=== PATIENT | female | born 1985 | race Hispanic/Latino ===

== ENCOUNTER 2017-06-03 13:45 | Inpatient (IN) | payer BC, MEDICAID, OTHER, SELFPAY ==
[2017-06-03] MEDS ORDERED: Ketorolac Tromethamine 30 MG/ML VIAL ONE (14:19)
[2017-06-03] MEDS ORDERED: Succinylcholine Chloride 20 MG/ML 10 ml SYRINGE FS ONE (14:19)
[2017-06-03] MEDS ORDERED: Lidocaine 1% PF 5 ML VIAL ONE (14:19)
[2017-06-03] MEDS ORDERED: PROPOFOL 200 MG/20 ML VIAL ONE (14:19)
[2017-06-03] MEDS ORDERED: Glycopyrrolate 0.2 MG/ML 5 ML SYRINGE ONE (14:19)
[2017-06-03] MEDS ORDERED: Ondansetron HCl/PF 4 MG/2 ML Vial ONE (14:19)
[2017-06-03 14:23] LABS: #Eosinphils 0.1 thou/uL (0.0-0.7); #Lymphocytes 1.4 thou/uL (1.20-3.40); #Monocytes 0.4 thou/uL (0.11-0.59); #Neutrophils 6.3 thou/uL (1.40-6.50); %Basophils 0.1 % (0.0-1.0); %Eosinophils 1.3 % (0.0-10.0); %Lymphocytes 16.5 % (21.0-51.0); %Monocytes 5.1 % (0.0-10.0); Hemoglobin 13.5 g/dL (12.0-16.0); Mean Corpuscular HGB CONC 34.2 g/dL (32.0-36.0); Mean Corpuscular Hemoglobin 31.3 pg (27.0-31.0); Mean Corpuscular Volume 91.5 fl (81.0-99.0); Mean Platelet Volume 6.3 fL (7.4-10.4); Platelet Count 272 thou/uL (130-400); RBC Distribution Width 12.3 % (11.5-14.5); Red Blood Cell (RBC) Count 4.31 mill/uL (4.20-5.40); White Blood Cell (WBC) Count 8.2 thou/uL (4.8-10.8)
[2017-06-03 15:31] LABS: Bilirubin Negative (Negative); Blood, Urine Large (Negative); Clarity CLEAR (Clear); Glucose, Urine (Dipstick) Negative (Negative); Leukocyte Negative (Negative); Nitrite Negative (Negative); Protein, Urine (Dipstick) 100 mg/dL (Neg-Trace); Urobilinogen 0.2 mg/dL (0.2-1.0)
[2017-06-03 15:32] LABS: Bacteria/HPF None Seen HPF (None Seen); Hyaline Casts/LPF 0-3 HYALINE CAST LPF (0-3 Hyaline); WBC/HPF 0-3 HPF (0-3)
--- NOTE | 2017-06-03 21:40 | ULT ---
PELVIC ULTRASOUND: 06/03/17 HISTORY: Positive beta HCG with a quantitative HCG of 440. Left adnexal pain. Real time images of the pelvis were obtained both transabdominally as well as with an endovaginal pro be. These show what appears to be some fluid within the endometrium. This does not appear to represen t a gestational sac. If it was a sac it would be very distorted. Both the right and left adnexa are w ell visualized. Small follicles are present. Adjacent to the left adnexa, is an echogenic area . Ther e is also a moderate amount of free fluid within the cul-de-sac, more than typically seen. IMPRESSION: Left adnexal mass with moderate amount of free fluid in the cul-de-sac. Given these findings and the presence of left sided pelvic pain, findings must be viewed with suspicion for left sided ectopic. Th ere is some fluid within the endometrium but not a definitive gestational sac. Findings discussed wit KATIE Wilburn. POS: [facility]
[2017-06-03] MEDS ORDERED: Fentanyl 100 MCG/2 ML VIAL ONE (21:52)
[2017-06-03] MEDS ORDERED: Bupivacaine PF 0.5% 30 ML VIAL ONE (22:13)
[2017-06-03] MEDS ORDERED: Lidocaine 1% w/Epinephrine 1:200K 30 ML VIAL ONE (22:13)
[2017-06-04] MEDS ORDERED: Ondansetron HCl/PF 4 MG/2 ML Vial IVP PRN ×2 (00:02→00:09)
[2017-06-04] MEDS ORDERED: Meperidine HCl/PF 25 MG/ML VIAL SLOW IVP PRN (00:02)
[2017-06-04] MEDS ORDERED: Ibuprofen 800 MG TAB PO PRN (00:09)
[2017-06-04] MEDS ORDERED: Lidocaine 1% (PF) 30 ML VIAL SC PRN (00:09)
[2017-06-04] MEDS ORDERED: LR / Pitocin 40 units/1000 ml 1,000 ML IV PRN (00:09)
[2017-06-04] MEDS ORDERED: Lactated Ringer's 1,000 ML IV SCH (00:15)
[2017-06-04] MEDS ORDERED: Ketorolac Tromethamine 30 MG/ML VIAL IVP SCH (00:45)
[2017-06-04] MEDS: Lactated Ringer's 1,000 ML IV SCH ×2 (05:43→09:48)
[2017-06-04] MEDS: Ketorolac Tromethamine 30 MG/ML VIAL IVP SCH ×2 (05:44→12:09)
--- NOTE | 2017-06-04 07:56 | OP ---
DATE OF ENCOUNTER: 06/03/2017 PREOPERATIVE DIAGNOSIS: Abdominal pain with suspected ectopic . POSTOPERATIVE DIAGNOSIS: Left tubal , ruptured. PROCEDURE: Diagnostic laparoscopy with left salpingectomy. SPECIMENS REMOVED: Left tube and products of conception. ESTIMATED BLOOD LOSS: 100 mL. URINE OUTPUT: 400 mL. FINDINGS: Left tubal with bleeding. INDICATIONS FOR PROCEDURE: Ms. Ruano is a 32-year-old female who presented to the emergency room this evening with 3-day history of abdominal pain and a new diagnosis of . Upon arrival, patient was noted to have an ultrasound with abdominal pain and free fluid in the belly and no intrauterine . Patient was counseled to the concerns of ectopic and recommended diagnostic laparoscopy, possible laparotomy. For treatment, patient expressed understanding after review of risks and benefits and we proceeded to the OR. DESCRIPTION OF PROCEDURE: Patient was placed under general anesthesia in dorsal lithotomy position in [facility]. She was prepared and draped in a normal sterile fashion. Attention was placed vaginally where a uterine manipulator was inserted into the Os of the cervix with the aid of operative speculum and a single-tooth tenaculum on the anterior lip of the cervix. Attention was then placed abdominally, where 3 incisions were made; one in the umbilicus about 5 mm, one suprapubically about 10 mm, and a left quadrant at about 5 mm. Marcaine was injected prior for hemostasis. The abdomen was insufflated to approximately 12 mmHg and a 5-mm port with trocar was then inserted through the umbilical incision. Proper placement was confirmed by laparoscope. Inspection of the abdominal cavities did show bleeding in the pelvis. A 10-mm trocar was then placed suprapubically under direct visualization and a 5-mm trocar placed to the left port. The abdomen was then irrigated and uterus was then elevated and right tube and ovary were inspected first and noted to be normal. Left tube and ovary were then inspected and a left tubal was then identified with bleeding and clots coming out the end. With the aid of the LigaSure and a grasper, the tube was elevated and the salpingectomy was then performed beginning at the distal end with care to stay close within the mesosalpinx just below the tube. Once this was completed, the tube was then removed with the aid of an EndoCatch bag. There was some bleeding identified at the surgical site, which was then made hemostatic with the LigaSure device. At this point, the abdomen was then irrigated and the remaining blood was then removed. Inspection of the surgical site revealed good hemostasis. Wwith the procedure now completed, the abdomen was deflated. The ports were removed. The suprapubic incision site was then closed with a fascial stitch of 0 Vicryl followed by 4-0 Monocryl for the skin. The other 2 sites were closed with 4-0 Monocryl. The single-tooth tenaculum and the uterine manipulator were also removed and inspection of the operative speculum, the cervix was noted to be hemostatic. Patient was then taken out of lithotomy position and extubated and taken to recovery room in stable condition. MARLO
--- NOTE | 2017-06-04 08:09 | DIS ---
DATE OF ADMISSION: 06/03/2017 DATE OF DISCHARGE: 06/04/2017 ADMITTING DIAGNOSIS: Ectopic . DISCHARGE DIAGNOSIS: Ectopic . PROCEDURE: Diagnostic laparoscopy with left salpingectomy. CONSULTATIONS: None. HOSPITAL COURSE: Patient is a 32-year-old female who presented to the emergency room with a newly di agnosed and left-sided abdominal pain. Findings suggested ruptured left ectopic and patient was taken to the operating room for evaluation. There, we confirmed a left tubal pregnan cy ruptured resulting in a left salpingectomy and evacuation of blood clots. Procedure was uncomplic ated. The patient was then taken to recovery room and subsequently to floor for immediate postoperat arti recovery due to hour of the surgery. This morning, the patient reported she has good pain contro l and is voiding on her own and is hungry. PHYSICAL EXAMINATION: VITAL SIGNS: This morning blood pressure is 111/62, heart rate of 65, temperature 98.5, respiratory rate of 18. GENERAL: She appears to be in no acute distress. She is alert and oriented, and cooperative and ple asant to interact with. ABDOMEN: Soft. Incisions are clean, dry, and intact. EXTREMITIES: Nontender. The patient is being discharged to home. She has instructions to follow up with [facility] [place] in 2 weeks for a postoperative visit. She is to seek medical attention sooner if she experi ences fever, increasing pain, bleeding, drainage or redness from the incision site. Patient is going to be discharged to home with ibuprofen to be taken as needed for pain and tramadol.
[2017-06-04 12:21] VITALS: BP 108/56; TEMP 98.2
[2017-06-04] MEDS ORDERED: FLU VACC QS2017-18 36 mo. & older 0.5 ML SYRINGE IM ONE (21:00)
== END 2017-06-04 13:45 | disposition home or self-care (01) | DRG 777 ==
LOC: ERS 13:45 → SDC/OP 23:10 → 3SW 06-04 00:50 → OBSVTOIN 06-04 00:50
PROVIDERS: ADMIT Obstetrics & Gynecology; ATTEND Obstetrics & Gynecology
PROC: 10T24ZZ Resection of Products of Conception, Ectopic, Percutaneous Endoscopic Approach (ICD-10-PCS; principal; 2017-06-04)
PROC: 0UT64ZZ Resection of Left Fallopian Tube, Percutaneous Endoscopic Approach (ICD-10-PCS; 2017-06-04)
DX: O00.102 Left tubal pregnancy without intrauterine pregnancy (principal)
CPT/HCPCS: 36415; 76856; 81003; 81015; 84702; 85025; 86850; 86900; 86901; 88305; 88307; J1885; J2001; J2405; J2704; J3010; S0020

== ENCOUNTER 2019-02-12 06:34 | Outpatient (CLI) | payer MEDICAID ==
--- NOTE | 2019-02-12 09:29 | ULT ---
TRANSABDOMINAL AND TRANSVAGINAL PELVIC ULTRASOUND WITH DOPPLER: Date: 02/12/19 PROVIDED CLINICAL HISTORY: Left-sided pelvic pain. FINDINGS: Uterus measures about 8.9 x 4.2 x 3.4 cm and demonstrates an unremarkable sonographic appearance. End ometrial thickness is about 6.0 mm. Right ovary measures about 3.0 cm and appears sonographically normal. Left ovary measures about 3.8 c m and demonstrates a 3.1 cm simple appearing presumably physiologic cyst. Color Doppler and spectral analysis of the ovarian waveforms demonstrates normal flow bilaterally. There is no evidence for free pelvic fluid. IMPRESSION: No evidence for an acute process. POS: OFF
== END 2019-02-12 06:35 | disposition home or self-care (01) ==
LOC: BICULT 06:34
PROVIDERS: ATTEND Advanced Practice Midwife
DX: R10.2 Pelvic and perineal pain (principal)
CPT/HCPCS: 76856

== ENCOUNTER 2019-08-14 15:32 | Outpatient (CLI) | payer OTHER ==
--- NOTE | 2019-08-14 16:04 | ULT ---
Renal sonogram HISTORY: Proteinuria. FINDINGS: Right kidney is 11.9 cm length and left is 12.1 cm. Each has a normal sonographic appearanc e without evidence of mass, stone, or hydronephrosis. Urinary bladder is incompletely distended. IMPRESSION : No abnormalities are demonstrated.
== END 2019-08-14 15:33 | disposition home or self-care (01) ==
LOC: BICULT 15:32
PROVIDERS: ATTEND Obstetrics & Gynecology
DX: R80.9 Proteinuria, unspecified (principal)
CPT/HCPCS: 76770

== ENCOUNTER 2019-12-14 10:09 | Day surgery (SDC) | payer OTHER ==
[2019-12-14 10:37] VITALS: BMI 35.1
[2019-12-14] MEDS ORDERED: hydrALAZINE 20 MG/ML VIAL SLOW IVP PRN (10:57)
[2019-12-14 11:09] LABS: Bacteria/HPF None Seen HPF (None Seen); Bilirubin Negative (Negative); Blood, Urine Negative (Negative); Clarity Clear (Clear); Glucose, Urine (Dipstick) Normal (Negative); Ketone, Urine 20 mg/dL (Negative); Leukocyte Negative Leu/uL (Negative); Nitrite Negative (Negative); Protein, Urine (Dipstick) 200 mg/dL (Neg-Trace); Specific Gravity, Urine 1.012 (1.002-1.036); Squamous Epithelial None Seen HPF (0-3); Urobilinogen Normal mg/dL (Less than 2); WBC/HPF 0-3 HPF (0-3); pH, Urine 7.5 (5.0-9.0)
--- NOTE | 2019-12-14 12:23 | PRG ---
DATE OF SERVICE: 12/14/2019 PRIMARY OB: Dr. Chen. CHIEF COMPLAINT: Back pain and suprapubic tenderness. HISTORY OF PRESENT ILLNESS: The patient is a 34-year-old, G7, P4 female with an intrauterine at 26 weeks and 6 days, presenting to Labor and Delivery with a couple of days history of lower back pain and suprapubic and pelvic pain. The patient reports that her back pain has been present since 4 months of , but was exacerbated with work that she started a couple of days ago. The patient reports that she is having more difficulty with mobility and has some suprapubic pain that is sharp in nature and in the front. She is concerned as to whether she should continue working or if she is able to continue working. She denies any fever. She denies fall. She denies headache, chest pain, shortness of breath, nausea, vomiting, diarrhea, constipation, hip problems, knee problems, muscle weakness. Denies any new rashes. Denies vaginal bleeding, leakage of fluid, change in discharge, urinary urgency or frequency. She does report gestational diabetes with this , controlled with diet alone, and has baseline proteinuria, which is being followed by Nephrology. PAST MEDICAL HISTORY: Ectopic . PAST SURGICAL HISTORY: For ectopic . ALLERGIES: NO KNOWN DRUG ALLERGIES. SOCIAL HISTORY: Denies drug, alcohol, or tobacco use. OB LABS: Unavailable at time of dictation. REVIEW OF SYSTEMS: Per HPI. PHYSICAL EXAMINATION: VITAL SIGNS: Blood pressure is 124/67, heart rate of 81, respiratory rate 16, saturating 100% on room air, temperature 98.5. GENERAL: She appears to be in no acute distress. She is alert, oriented, cooperative, and pleasant to interact with. HEAD: Normocephalic, atraumatic. LUNGS: Clear to auscultation bilaterally. HEART: Regular rate and rhythm. ABDOMEN: Gravid, soft, nontender. EXTREMITIES: Nontender, nonedematous. She does have some SI joint tenderness to palpation and she has some lateral tenderness with deviation of the uterus on either side and some suprapubic tenderness to palpation. : Deferred at this time. LABORATORY DATA: heart tracing shows the fetus with a baseline in the 140s with moderate long-term variability, appropriate for a 26-week gestation. No contractions seen on the monitor. Urinalysis shows baseline proteinuria with 28 ketones, negative for leukocyte esterase, negative for nitrites, negative for white blood cells, negative for squamous cells, and negative for bacteria. ASSESSMENT AND PLAN: The patient is a 34-year-old female, coming in with some back pain and some suprapubic pain, likely secondary to increased activity from recent work that she has started. The patient has been walked through a series of stretches and exercises intended to help with leg strengthening and improvement of flexibility of her hips and pelvic muscles to decrease chances of piriformis syndrome that may be contributing to some of her pain. The patient did report after walking her through one set of the stretches and exercises that she does feel some improvement in her hips and legs. We have asked her that follow-through with this twice a day. She has also been given instructions to keep her appointment with Dr. Chen as scheduled next week. Fetus has a category 1 tracing, appropriate for gestational age. No evidence of urinary tract infection. Job ID: [id number]
== END 2019-12-14 11:50 | disposition home health service (06) ==
LOC: L&D/OP 10:09
PROVIDERS: ATTEND Obstetrics & Gynecology
DX: O99.89 Other specified diseases and conditions complicating pregnancy, childbirth and the puerperium (principal); M54.5 Low back pain; R10.2 Pelvic and perineal pain; Z3A.26 26 weeks gestation of pregnancy
CPT/HCPCS: 81001; 99282

== ENCOUNTER 2020-03-04 08:45 | Outpatient (CLI) | payer OTHER ==
[2020-03-04 23:34] LABS: SARS-CoV-2 MS2 Positive; SARS-CoV-2 N Gene Positive; SARS-CoV-2 S Gene Positive; SARS-CoV-2 by NAA DETECTED (NotDetected); SARS-CoV-2 orf1ab Positive
== END 2020-03-04 08:46 | disposition home or self-care (01) ==
LOC: LABBT 08:45
PROVIDERS: ATTEND Obstetrics & Gynecology
DX: U07.1 COVID-19 (principal)
CPT/HCPCS: 87635; U0003

== ENCOUNTER 2020-03-06 05:30 | Inpatient (IN) | payer OTHER ==
[2020-03-06 07:10] VITALS: BMI 39.8
[2020-03-06] MEDS ORDERED: Lidocaine 1% (PF) 30 ML VIAL SC PRN (07:13)
[2020-03-06] MEDS ORDERED: Butorphanol Tartrate 1 MG/ML VIAL SLOW IVP PRN (07:13)
[2020-03-06] MEDS ORDERED: NS / Oxytocin 40 units/1000ml 1,000 ML IV PRN (07:13)
[2020-03-06] MEDS ORDERED: Ondansetron PF 4 MG/2 ML Vial IVP PRN ×3 (07:13→22:43)
[2020-03-06] MEDS ORDERED: Lactated Ringer's 1,000 ML IV SCH (07:13)
[2020-03-06] MEDS ORDERED: NS w/ Oxytocin 10 units 500 ML IV SCH (07:13)
[2020-03-06] MEDS ORDERED: Ibuprofen 800 MG TAB PO PRN (07:13)
[2020-03-06] MEDS ORDERED: hydrALAZINE 20 MG/ML VIAL SLOW IVP PRN ×2 (07:13→22:43)
[2020-03-06] MEDS ORDERED: HYDROcodone/Acetaminophen 5/325 mg Tablet PO PRN ×3 (07:13→22:43)
[2020-03-06] MEDS ORDERED: Promethazine HCl 25 MG/ML VIAL IM PRN ×3 (07:13→22:43)
[2020-03-06] MEDS ORDERED: NS w/ Oxytocin 10 units 500 ML ONE (07:23)
[2020-03-06] MEDS ORDERED: FLU VACC QS2020-21(6MOS UP)/PF 60 MCG/0.5 ML SYRINGE IM ONE (07:30)
[2020-03-06 07:36] LABS: Hemoglobin 12.5 g/dL (12.0-16.0); Mean Corpuscular HGB CONC 34.1 g/dL (32.0-36.0); Mean Corpuscular Hemoglobin 30.3 pg (27.0-31.0); Mean Corpuscular Volume 89.1 fL (78.0-98.0); Mean Platelet Volume 6.7 fL (7.4-10.4); Platelet Count 221 thou/uL (130-400); RBC Distribution Width 13.6 % (11.5-14.5); Red Blood Cell (RBC) Count 4.11 mill/uL (4.20-5.40); White Blood Cell (WBC) Count 4.5 thou/uL (4.8-10.8)
[2020-03-06 08:14] LABS: Syphilis Antibody Nonreactive (Nonreactive); Syphilis Antibody Index 0.02 S/CO (<1.00 Non-Reactive)
[2020-03-06 08:15] LABS: HBSAg Index 0.15 S/CO (0-0.99); Hep B Surf Ag Non-Reactive S/CO (NonReactive)
[2020-03-06] MEDS: Lactated Ringer's 1,000 ML IV SCH ×2 (10:38→17:39)
[2020-03-06] MEDS ORDERED: DISCONTINUE ALL PREVIOUS NARCOTICS FS SCH (15:30)
[2020-03-06] MEDS ORDERED: Bupivacaine 0.5% 20 ML, fentaNYL Citrate/PF 400 MCG in Sodium Chloride 0.9% 72 ML EPIDURAL SCH (15:30)
[2020-03-06] MEDS ORDERED: ePHEDrine 50 MG/ML VIAL SLOW IVP PRN (17:09)
[2020-03-06] MEDS ORDERED: Acetaminophen 325 MG TAB PO PRN (17:09)
[2020-03-06] MEDS ORDERED: diphenhydrAMINE 50 MG/ML VIAL IVP PRN (17:09)
[2020-03-06] MEDS ORDERED: Naloxone HCl 0.4 mg/ml Vial IVP PRN ×2 (17:09)
[2020-03-06] MEDS ORDERED: Lactated Ringer's 500 ML IV PRN (17:09)
[2020-03-06] MEDS ORDERED: Fentanyl 4 mcg/Bupivacaine 0.1% Cassette 100 ML EPIDURAL SCH (17:15)
[2020-03-06] MEDS ORDERED: Communication Order-Pharmacy FS SCH (17:15)
[2020-03-06] MEDS ORDERED: Lidocaine 1% (PF) 30 ML VIAL ONE (17:16)
[2020-03-06] MEDS ORDERED: Misoprostol 200 MCG TAB ONE ×4 (17:17→17:18)
[2020-03-06] MEDS ORDERED: Methylergonovine 0.2 MG/ML VIAL ONE (17:18)
[2020-03-06] MEDS ORDERED: NS / Oxytocin 40 units/1000ml 1,000 ML ONE ×2 (17:21→23:26)
--- NOTE | 2020-03-06 21:14 | OP ---
DATE OF PROCEDURE: 03/06/2020 TIME OF SERVICE: 2039. 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 PROCEDURES PERFORMED: Spontaneous vaginal delivery without laceration at approximately 2019. QUANTITATIVE BLOOD LOSS: Pending. WEIGHT: Pending. APGARS: Pending. FINDINGS: 1. Vigorous male , JOHNNY presentation, spontaneous delivery without shoulder dystocia. 2. Placenta delivered spontaneously approximately 5 minutes later. 3. No lacerations. 4. Correct counts at the end of the procedure. PATHOLOGY: Placenta to pathology for history of diabetes and COVID positive. DESCRIPTION OF PROCEDURE: The patient was delivered in an LDR-7 and contact isolation throughout the day. She had some mildly elevated blood pressures toward the end of second stage of labor, otherwise had been normotensive. She delivered after pushing for about an hour in a controlled manner over an intact perineum. was placed on the maternal abdomen with delayed cord clamping. Usual cord blood sample was obtained. The placenta delivered spontaneously approximately 5 minutes post delivery. No excessive hemorrhage was noted at the time of delivery. QBL is pending at this time. The patient has entered into routine status except of course she will be kept in respiratory isolation secondary to COVID-19 positivity on asymptomatic screening prior to induction of labor. The patient will follow up with Dr. Juan Martin in the post [place] as an outpatient and arrange for kidney biopsy. Blood glucoses have been within normal limits throughout labor. Dr. Chen is delivering for [facility]. Job ID: [id number]
[2020-03-06] MEDS ORDERED: Misoprostol 200 MCG TAB PR SCH (21:45)
[2020-03-06] MEDS ORDERED: Preparation H Ointment 28 GM TUBE PR PRN (22:43)
[2020-03-06] MEDS ORDERED: NS / Oxytocin 40 units/1000ml 1,000 ML IV SCH (22:43)
[2020-03-06] MEDS ORDERED: Labetalol HCl 100 MG/20 ML VIAL SLOW IVP PRN (22:43)
[2020-03-06] MEDS ORDERED: Bisacodyl 10 MG SUPP PR PRN (22:43)
[2020-03-06] MEDS ORDERED: Milk Of Magnesia 30 ML UDCUP PO PRN (22:43)
[2020-03-06] MEDS ORDERED: diphenhydrAMINE 25 MG CAP PO PRN (22:43)
[2020-03-06] MEDS ORDERED: Benzocaine-Menthol 82.5 ML CAN TOP PRN (22:43)
[2020-03-06] MEDS ORDERED: Lanolin Ointment 7 GM TUBE TOP PRN (22:43)
[2020-03-06] MEDS ORDERED: Zolpidem Tartrate 5 MG TAB PO PRN (22:43)
[2020-03-07] MEDS: Ibuprofen 800 MG TAB PO SCH ×4 (00:38→22:11)
[2020-03-07] MEDS: HYDROcodone/Acetaminophen 5/325 mg Tablet PO PRN (06:14)
--- NOTE | 2020-03-07 06:58 | PDOC.PP ---
Post Progress Note Post Day #: 0 PO intake tolerated: yes Flatus: yes Ambulation: yes Vital Signs (12 hours) Temp Pulse Resp BP Pulse Ox 03/07/20 04:45 98.3 F 92 22 H 123/62 98 03/07/20 01:25 99.3 F 106 H 22 H 135/74 98 03/07/20 00:45 101.1 F H 106 H 22 H 130/73 98 03/06/20 23:30 101.6 F H 03/06/20 23:15 101.5 F H 105 H 22 H 143/81 H 97 Weight Weight 204 lb - Physical Examination General: NAD Cardiovascular: no m/r/g, RRR Respiratory: clear to auscultation bilaterally, non-labored breathing Abdominal: + bowel sounds, lochia, no distention Extremities: negative homans (B) Neurological: no gross focal deficits Psychiatric: A&Ox3, normal affect Result Diagrams: 03/06/20 07:16 Additional Labs: Post Labs Hep Bs Antigen Non-Reactive S/CO (NonReactive) 03/06/20 07:16 Blood Type O POSITIVE 03/06/20 07:16 - Assessment/Plan ppd 0-1. no covid sx. baby doing well. probably dc on 03/08 am
[2020-03-07] MEDS: Docusate Calcium (SURFAK) 240 MG CAP PO SCH ×2 (08:36→22:11)
[2020-03-07] MEDS: Prenatal Vitamin 1 TAB PO SCH (08:36)
[2020-03-07] MEDS ORDERED: Adacel (T-DAP) 0.5 ML SYRINGE IM ONE (09:00)
--- NOTE | 2020-03-08 05:40 | PDOC.PP ---
Post Progress Note Post Day #: PPD2 Subjective: Doing well, no c/o. Denies SOB PO intake tolerated: yes Flatus: yes Ambulation: yes Vital Signs (12 hours) Temp Pulse Resp BP Pulse Ox 03/07/20 21:00 98.5 F 89 18 135/71 99 03/07/20 20:00 98 Weight Weight 92.533 kg - Physical Examination General: NAD Respiratory: non-labored breathing Neurological: no gross focal deficits Psychiatric: normal affect Result Diagrams: 03/06/20 07:16 Additional Labs: Post Labs Hep Bs Antigen Non-Reactive S/CO (NonReactive) 03/06/20 07:16 Blood Type O POSITIVE 03/06/20 07:16 - Assessment/Plan Doing well s/p DC home with PP and Covid precautions. RTC 6 weeks at [facility]
[2020-03-08] MEDS: Ibuprofen 800 MG TAB PO SCH (06:37)
[2020-03-08] MEDS: Docusate Calcium (SURFAK) 240 MG CAP PO SCH (08:16)
[2020-03-08] MEDS: Prenatal Vitamin 1 TAB PO SCH (08:16)
[2020-03-08 09:07] VITALS: BP 126/79; TEMP 98.9
[2020-03-08] MEDS: HYDROcodone/Acetaminophen 5/325 mg Tablet PO PRN (10:33)
== END 2020-03-08 11:50 | disposition home or self-care (01) | DRG 805 ==
LOC: L&D 06:19 → 3SW 03-07
PROVIDERS: ADMIT Obstetrics & Gynecology; ATTEND Obstetrics & Gynecology
PROC: 10E0XZZ Delivery of Products of Conception, External Approach (ICD-10-PCS; principal; 2020-03-06)
PROC: 8E0ZXY6 Isolation (ICD-10-PCS; 2020-03-06)
DX: O98.52 Other viral diseases complicating childbirth (principal); U07.1 COVID-19; Z37.0 Single live birth; O99.52 Diseases of the respiratory system complicating childbirth; J98.8 Other specified respiratory disorders; O24.420 Gestational diabetes mellitus in childbirth, diet controlled; Z3A.38 38 weeks gestation of pregnancy
CPT/HCPCS: 36415; 36416; 51702; 85027; 86780; 86850; 86900; 86901; 87340; 88307; J0595; J2590; J3010; J3490

== ENCOUNTER 2020-03-15 16:57 | Emergency (ER) | payer OTHER ==
[2020-03-15 17:39] LABS: #Eosinphils 0.1 thou/uL (0.0-0.7); #Lymphocytes 0.9 thou/uL (1.20-3.40); #Monocytes 0.3 thou/uL (0.11-0.59); #Neutrophils 3.7 thou/uL (1.40-6.50); %Basophils 0.3 % (0.0-1.0); %Eosinophils 1.2 % (0.0-10.0); %Lymphocytes 17.3 % (21.0-51.0); %Monocytes 6.4 % (0.0-10.0); %Neutrophils 74.8 % (42.0-75.0); Hemoglobin 11.9 g/dL (12.0-16.0); Mean Corpuscular HGB CONC 33.6 g/dL (32.0-36.0); Mean Corpuscular Hemoglobin 29.9 pg (27.0-31.0); Mean Corpuscular Volume 88.9 fL (78.0-98.0); Mean Platelet Volume 5.6 fL (7.4-10.4); Platelet Count 408 thou/uL (130-400); RBC Distribution Width 12.9 % (11.5-14.5); White Blood Cell (WBC) Count 4.9 thou/uL (4.8-10.8)
[2020-03-15 18:01] LABS: ALT (SGPT) 16 U/L (8-55); AST (SGOT) 44 U/L (5-34); Albumin 3.3 g/dL (3.5-5.0); Alkaline Phosphatase 83 U/L (40-110); Anion Gap 17 mmol/L (10-20); BUN (Urea Nitrogen) 12 mg/dL (7.0-18.7); Bilirubin, Total 0.2 mg/dL (0.2-1.2); Calc. Creatinine Clearance 0 mL/min (70-130); Calcium 8.3 mg/dL (7.8-10.44); Carbon Dioxide 19 mmol/L (22-29); Chloride 108 mmol/L (98-107); Estimated GFR-MDRD Greater than 90; Glucose 95 mg/dL (70-105); Potassium 3.7 mmol/L (3.5-5.1); Protein, Total 7.3 g/dL (6.0-8.3); Sodium 140 mmol/L (136-145)
== END 2020-03-15 19:09 | disposition home or self-care (01) ==
LOC: ERS 16:57
DX: U07.1 COVID-19 (principal)
CPT/HCPCS: 36415; 80053; 85025; 99284